=== PATIENT | male | born 1940 | race Hispanic/Latino ===

== ENCOUNTER → 2018-03-30 | Outpatient (CLI) | payer OTHER ==
[~2018-03-30] MED LIST: AEC81 PO; ATEN1TAB3 PO; ATOR20TA65 PO; GABA-531 PO; GLIP1TAB5 PO; POTA20TA82 PO; TRAM50TA4 PO
== END | disposition home or self-care (01) ==
LOC: SHCH 07:46
PROVIDERS: ATTEND Internal Medicine Cardiovascular Disease
DX: I72.3 Aneurysm of iliac artery (principal); E11.9 Type 2 diabetes mellitus without complications
CPT/HCPCS: 93978

== ENCOUNTER 2025-03-11 21:05 | Emergency (ER) | payer OTHER ==
[~2025-03-11] VITALS: Ht 177.8 cm; Wt 91.6 kg
[~2025-03-11 21:05] MED LIST changes: +POTA-202 PO; -POTA20TA82 PO
--- NOTE | 2025-03-11 21:23 | NUR ---
PT CARE ASSUMED AT THIS TIME
[2025-03-11 22:11] LABS: RAPID GROUP A STREP negative (NEGATIVE)
[2025-03-11 22:13] LABS: SARS-CoV-2, RNA, NAAT POSITIVE SARS CoV-2 (NEGATIVE)
[2025-03-11 22:20] LABS: INFLUENZA TYPE A Negative For Type A (NEGATIVE); INFLUENZA TYPE B Negative For Type B (NEGATIVE)
--- NOTE | 2025-03-11 23:21 | ERN ---
ED Note History of Present Illness Stated Complaint: COUGH, LOSS OF VOICE Chief Complaint: Multiple Complaints Time Seen by MD: 21:13 Time Seen by Midlevel: 21:14 Dictation: 84-year-old male who presents to the emergency department due to reported having a runny nose, sore throat and an occasional nonproductive cough that began yesterday. He states that there is no confirmed fever associated with this. However, he states that he has been having some chills. The patient states that his also presents with a similar symptoms. Upon initial evaluation, the patient presents in no acute respiratory distress. Allergies: Coded Allergies: No Known Drug Allergies (Verified Allergy, 11/07/13) Emergency Care CAN STACKER: None Home Meds Reported Medications Atorvastatin Calcium (Atorvastatin Calcium) 20 Mg Tablet, 20 MG PO HS, TAB 10/14/16 Gabapentin (Gabapentin) 300 Mg Capsule, 300 MG PO HS, CAP 10/14/16 Tramadol Hcl (Tramadol HCl) 50 Mg Tablet, 50 MG PO TID PRN for PAIN, TAB 10/14/16 Potassium Chloride (Potassium Chloride) 20 Meq Tab.er.prt, 20 MEQ PO BID, CAP 10/14/16 Atenolol/Chlorthalidone (Atenolol-Chlorthal 50-25 Tb) 1 Each Tablet, 1 EACH PO DAILY, TAB 03/02/14 Glipizide/Metformin HCl (Glipizide-Metformin 2.5-500 mg) 1 Each Tablet, 1 EACH PO BID, TAB 03/02/14 Aspirin (ASPIRIN 81 MG ECTAB) 81 Mg Tablet.dr, 81 MG PO DAILY, TAB 03/02/14 Past Medical History Past Medical History: Dementia, Diabetes-Type II, High Cholesterol, Hypertension Surgical History: CABG PSYCH History: no pertinent psych hx RN Note Reviewed/Agreed w/PFSH: Yes Review of System Dictation Constitutional: Fever, chills ENT: Runny nose, sore throat Respiratory: Nonproductive cough Initial Vital Sign VS Vital Signs Date Time Temp Pulse Resp B/P (MAP) Pulse Ox O2 Delivery O2 Flow Rate FiO2 03/11/25 21:06 97.9 77 20 130/82 95 Room Air 03/11/25 21:46 0 21 Physical Exam Dictation General: awake, alert, NAD Head/Face: Normocephalic, atraumatic Eyes: PERRL, EOMI ENT: Bilateral nasal congestion, erythematous pharynx Neck: Trachea midline, supple Cardiovascular: RRR, no edema Respiratory: Symmetrical, non-labored Abdomen: Soft, non-tender, non-distended, no guarding. Skin: Warm, dry, good turgor, no rash MS/Extremity: Pulses equal, no cyanosis, neurovascular intact, FROM Neuro: COAx4, GCS 15, steady gait, Psych: Normal behavior, mood, and affect normal Results (Laboratory/Radiology) Laboratory/Radiology Laboratory Tests Test 03/11/25 21:45 Influenza Type A Antigen Negative For Type A Influenza Type B Antigen Negative For Type B SARS-CoV-2, RNA, NAAT POSITIVE SARS CoV-2 Group A Streptococcus Rapid negative (NEGATIVE) Labs Reviewed?: Yes ED Course ED Course Orders Procedure Category Date Status Time Influenza Type A & B, LAB 03/11/25 Complete Rapid 21:27 Rapid (Group A Strep) LAB 03/11/25 Complete 21:27 Covid Rna Naat LAB 03/11/25 Complete 21:45 Vital Signs Date Time Temp Pulse Resp B/P (MAP) Pulse Ox O2 Delivery O2 Flow Rate FiO2 03/11/25 21:46 98.6 80 16 129/67 100 Room Air* 0 21 03/11/25 21:06 97.9 77 20 130/82 95 Room Air Medical Decision Making MDM MDM: Differential diagnosis: Viral illness, influenza, COVID. Rationale: Tests considered and ordered secondary to shared decision making include: Previous outside records reviewed: Old ER visits. Risk of complication and/or morbidity or mortality of patient management: None Medications-Per medication reconciliation Need for hospitalization: Patient does not meet criteria for hospitalization. Need for emergency major/minor surgery: No There are no social concerns with this patient. Prescription drug management Prescriptions will include symptomatic care Patient's prior external medical records from other ER visits were reviewed by me as indicated. Prior testing and results from previous visits were reviewed. Prior tests were taken into account with medical decision making and resource utilization, independent historian/historians were used to obtain complete medical history. I independently interpreted the test that were performed, results were reviewed by me and considered findings on radiology if ordered. Medical management and examination interpretation discussions were had by me with other qualified healthcare professionals as indicated for the patient's care. DX & DISP Disposition: Discharge Departure Impression: Primary Impression: COVID-19 virus infection Condition: Stable Referrals: KROES,LANETTE A MD (PCP) Time of Disposition: 23:20 WARD ROSENTHAL Mar 11, 2025 23:21
[2025-03-11 23:40] VITALS: BP 122/70; PULSE 78; RESP 15; TEMP 98.9; O2SAT 98
== END 2025-03-11 23:42 | disposition home or self-care (01) ==
LOC: EDH 21:05
DX: U07.1 COVID-19 (principal); E11.9 Type 2 diabetes mellitus without complications; E78.00 Pure hypercholesterolemia, unspecified; F03.90 Unspecified dementia, unspecified severity, without behavioral disturbance, psychotic disturbance, mood disturbance, and anxiety; I10 Essential (primary) hypertension; Z79.82 Long term (current) use of aspirin; Z79.84 Long term (current) use of oral hypoglycemic drugs; Z79.899 Other long term (current) drug therapy; Z95.1 Presence of aortocoronary bypass graft
CPT/HCPCS: 87635; 87804; 87880; 99283

== ENCOUNTER → 2025-04-16 | Outpatient (CLI) | payer OTHER ==
--- NOTE | 2025-04-17 09:02 | HMCIMG ---
EXAM: CT Chest Without IV contrast. CLINICAL HISTORY: Interstitial pulmonary disease, unspecified, Shortness of breath TECHNIQUE: Thin collimated axial CT images of the chest were obtained with sagittal and coronal reformatted images also submitted for interpretation. The total dose length product has been recorded in the electronic medical record. CT scan done according to ALARA (As Low As Reasonably Achievable). COMPARISON: CT angio chest dated 10/12/2015. FINDINGS: LUNGS: Consolidation of the left upper lobe, including lingular segment. Interstitial septal thickening with ground glass opacities and cystic areas is present bilaterally, predominantly in the lower lobes. No significant air-trapping on expiratory images. PLEURAL SPACES: No pneumothorax evident. No pleural effusions. HEART: No cardiomegaly. No significant pericardial effusion. Atheromatous wall calcification of the intrathoracic aorta. Post-CABG changes. Ectatic ascending aorta measuring 4.1cm. LYMPH NODES: No lymphadenopathy is evident. UPPER ABDOMEN: Status postcholecystectomy. Hypodense foci in the liver, the largest in the right lobe of the liver, measuring 15 mm. BONES: No acute osseous abnormality. Mild multilevel degenerative changes of the spine. IMPRESSION: 1. Left upper lobe consolidation, including lingular segment. This is likely infectious in etiology, but follow-up after treatment is recommended to exclude an underlying mass. 2. Bilateral interstitial septal thickening with ground glass opacities and cystic areas, predominantly in the lower lobes. 3. Ectasia of the ascending aorta, measuring 4.1 cm. 4. Atherosclerosis of coronary artery disease. Status post colostomy and coronary artery bypass. /Reading
== END | disposition home or self-care (01) ==
LOC: RAH 13:40
PROVIDERS: ATTEND Family Medicine
DX: J84.9 Interstitial pulmonary disease, unspecified (principal); I77.810 Thoracic aortic ectasia; R06.02 Shortness of breath; I25.10 Atherosclerotic heart disease of native coronary artery without angina pectoris; J98.4 Other disorders of lung; M47.814 Spondylosis without myelopathy or radiculopathy, thoracic region; Z93.3 Colostomy status; Z90.49 Acquired absence of other specified parts of digestive tract; Z95.1 Presence of aortocoronary bypass graft
CPT/HCPCS: 71250